=== PATIENT | female | born 1985 | race Two or more races ===

== ENCOUNTER 2016-06-17 15:07 | Emergency (ER) | payer MEDICAID ==
[~2016-06-17] VITALS: Ht 149.9 cm; Wt 71.8 kg
[~2016-06-17 15:07] MED LIST: PRENATAL VIT
[2016-06-17 15:32] VITALS: BP 126/82
[2016-06-17] MEDS ORDERED: EPINEPHrine HCL 1 MG/1 ML AMP IM ONE (15:45)
[2016-06-17] MEDS ORDERED: methylPREDNISolone SOD SUCC 125 MG/2 ML VL IM ONE (15:45)
[2016-06-17] MEDS ORDERED: diphenhdrAMINE HCL 50 MG/1 ML VL IM ONE (15:45)
== END 2016-06-17 16:40 | disposition home or self-care (01) ==
LOC: ER 15:12
DX: O26.892 Other specified pregnancy related conditions, second trimester (principal); L50.9 Urticaria, unspecified; Z3A.15 15 weeks gestation of pregnancy
CPT/HCPCS: 96372; 99284; J0171; J1200; J2930

== ENCOUNTER 2016-07-21 17:06 | Emergency (ER) | payer MEDICAID ==
[~2016-07-21] VITALS: Ht 147.3 cm; Wt 74.8 kg
[2016-07-21 17:39] LABS: Basophils # (auto) 0 uL; Basophils % (auto) 0.4 % (0.0-2.0); Eosinophils # (auto) 0.1 uL; Eosinophils % (auto) 1.8 % (0.0-7.0); Hemoglobin 13.2 g/dL (12.2-16.2); Lymphocytes # (auto) 0.9 uL; Lymphocytes % (auto) 10.4 % (10.0-50.0); Mean Corpuscular Hemoglobin 30.6 pg (28.0-32.0); Mean Corpuscular Hgb Conc. 34.7 g/dL (32.0-36.0); Mean Corpuscular Volume 88.1 fL (80.0-100.0); Mean Platelet Volume 10.1 fL (7.4-10.4); Monocytes # (auto) 0.5 uL; Monocytes % (auto) 5.9 % (0.0-12.0); Neutrophils # (auto) 6.9 uL; Neutrophils % (auto) 81.5 % (37.0-80.0); Platelet Count (auto) 158 10^3/uL (140-450); Red Cell Distribution Width 13.6 % (11.6-16.0); White Blood Cell 8.4 10^3/uL (4.4-10.8)
[2016-07-21 18:06] LABS: Albumin 3.3 g/dL (3.4-5.0); BUN/Creatinine Ratio 7.8; Calcium 8.9 mg/dL (8.5-10.1); Potassium 3.5 mmol/L (3.5-5.1); Total Protein 7.5 g/dL (6.4-8.2)
[2016-07-21] MEDS ORDERED: SODIUM CHLORIDE 0.9% 1,000 ML IV ONE (22:30)
[2016-07-21] MEDS ORDERED: SODIUM CHLORIDE 0.9% 1,000 ML IV SCH (22:45)
[2016-07-22 00:10] VITALS: BP 146/92
== END 2016-07-22 01:10 | disposition short-term general hospital (02) ==
LOC: ER 17:06
DX: O99.612 Diseases of the digestive system complicating pregnancy, second trimester (principal); Z3A.19 19 weeks gestation of pregnancy; K85.90 Acute pancreatitis without necrosis or infection, unspecified; K83.1 Obstruction of bile duct
CPT/HCPCS: 36415; 76705; 76805; 80053; 82150; 83690; 84702; 85025; 96360; 99285; J7030

== ENCOUNTER 2016-08-08 14:40 | Observation (INO) | payer MEDICAID ==
[2016-08-08] MEDS ORDERED: cefTRIAXone 1GM/50ML D5W 50 ML IV ONE ×2 (15:19→15:30)
== END 2016-08-08 16:40 | disposition home or self-care (01) | DRG 566 ==
LOC: LDRP 14:40
PROVIDERS: ADMIT Specialist; ATTEND Specialist
DX: O23.42 Unspecified infection of urinary tract in pregnancy, second trimester (principal); Z3A.22 22 weeks gestation of pregnancy
CPT/HCPCS: 59025; 81002; 96365; G0378; J0696; J7030

== ENCOUNTER 2016-11-02 19:05 | Observation (INO) | payer MEDICAID ==
[2016-11-02] MEDS ORDERED: TERBUTALINE SULFATE 1 MG/ML 1ML VIAL SC ONE (19:47)
[2016-11-02] MEDS: TERBUTALINE SULFATE 1 MG/ML 1ML VIAL SC ONE (20:09)
== END 2016-11-02 21:05 | disposition home or self-care (01) | DRG 566 ==
LOC: LDRP 19:05
PROVIDERS: ADMIT Specialist; ATTEND Specialist
DX: O62.9 Abnormality of forces of labor, unspecified (principal); O21.2 Late vomiting of pregnancy; Z3A.34 34 weeks gestation of pregnancy
CPT/HCPCS: 59025; 81002; 96372; G0378; J3105

== ENCOUNTER 2018-08-21 17:09 | Emergency (ER) | payer MEDICAID ==
[~2018-08-21] VITALS: Ht 147.3 cm; Wt 61.2 kg
[2018-08-21 19:31] LABS: Basophils # (auto) 0 uL; Basophils % (auto) 0.2 % (0.0-2.0); Eosinophils # (auto) 0.1 uL; Eosinophils % (auto) 1.8 % (0.0-7.0); Hematocrit 41.4 % (36.0-46.0); Hemoglobin 14.4 g/dL (12.2-16.2); Lymphocytes # (auto) 1.8 uL; Lymphocytes % (auto) 22.7 % (10.0-50.0); Mean Corpuscular Hgb Conc. 34.8 g/dL (32.0-36.0); Mean Corpuscular Volume 89.3 fL (80.0-100.0); Monocytes # (auto) 0.7 uL; Monocytes % (auto) 8.3 % (0.0-12.0); Neutrophils # (auto) 5.4 uL; Nucleated Red Blood Cells % 0.1 %; Platelet Count (auto) 157 10^3/uL (140-450); Red Blood Cells 4.64 10^6/uL (4.0-5.20); Red Cell Distribution Width 12.3 % (11.8-14.3)
[2018-08-21 19:44] LABS: Albumin 4.3 g/dL (3.4-5.0); Calcium 9.1 mg/dL (8.5-10.1); Potassium 3.9 mmol/L (3.5-5.1)
[2018-08-21 19:48] LABS: BUN/Creatinine Ratio 16.4; Bilirubin, Total 0.3 mg/dL (0.2-1.0); Total Protein 7.5 g/dL (6.4-8.2)
[2018-08-21] MEDS ORDERED: HYDROcodone-ACET 10/325MG TAB PO ONE (21:30)
[2018-08-21 21:55] VITALS: BP 117/74
== END 2018-08-21 22:50 | disposition home or self-care (01) ==
LOC: ER 17:12
DX: R10.9 Unspecified abdominal pain (principal); R05 Cough; Z90.49 Acquired absence of other specified parts of digestive tract
CPT/HCPCS: 36415; 80053; 84702; 85025; 94761

== ENCOUNTER 2022-05-11 12:16 | Emergency (ER) | payer MEDICAID ==
[~2022-05-11] VITALS: Ht 149.9 cm; Wt 65.7 kg
[2022-05-11 12:52] VITALS: BP 125/81
[2022-05-11] MEDS ORDERED: IBUP600T27 PO (13:24)
[2022-05-11] MEDS ORDERED: AMOX875T3 PO (13:24)
== END 2022-05-11 13:34 | disposition home or self-care (01) ==
LOC: ER 12:16
DX: H66.92 Otitis media, unspecified, left ear (principal); J02.9 Acute pharyngitis, unspecified